=== PATIENT | female | born 1990 | race Two or more races ===

== ENCOUNTER → 2018-11-27 | Outpatient (CLI) | payer OTHER | END | disposition home or self-care (01) | LOC: PRENATAL 09:12 | DX: O99.89 Other specified diseases and conditions complicating pregnancy, childbirth and the puerperium (principal); O24.410 Gestational diabetes mellitus in pregnancy, diet controlled; O26.843 Uterine size-date discrepancy, third trimester ==

== ENCOUNTER 2019-01-14 12:36 | Inpatient (IN) | payer OTHER ==
[~2019-01-14] VITALS: Ht 152.4 cm; Wt 68.9 kg
== END 2019-01-17 18:30 | disposition home or self-care (01) | DRG 788 ==
LOC: LDR 12:36 → SURG-SUITE 12:36 → O/R 19:30 → SURG-SUITE 20:46 → OB/GYN 21:52 → SURG-SUITE 22:29
PROVIDERS: ADMIT Obstetrics & Gynecology
PROC: 4A1HXCZ Monitoring of Products of Conception, Cardiac Rate, External Approach (ICD-10-PCS; 2019-01-14)
PROC: 10D00Z1 Extraction of Products of Conception, Low, Open Approach (ICD-10-PCS; principal; 2019-01-14 18:00)
DX: O82 Encounter for cesarean delivery without indication (principal); O76 Abnormality in fetal heart rate and rhythm complicating labor and delivery; Z3A.37 37 weeks gestation of pregnancy; Z37.0 Single live birth

== ENCOUNTER → 2019-01-14 | Outpatient (CLI) | payer OTHER | END | disposition home or self-care (01) | LOC: PRENATAL 08:30 | DX: O99.89 Other specified diseases and conditions complicating pregnancy, childbirth and the puerperium (principal); O26.843 Uterine size-date discrepancy, third trimester; O24.410 Gestational diabetes mellitus in pregnancy, diet controlled; O36.8131 Decreased fetal movements, third trimester, fetus 1 ==